=== PATIENT | female | born 1975 | race Caucasian/White ===

== ENCOUNTER 2017-12-03 13:15 | Emergency (ER) | payer BC, SELFPAY ==
[2017-12-03 15:36] VITALS: BP 171/101; PULSE 79; RESP 20; TEMP 37.1; O2SAT 96; BMI 41.5
--- NOTE | 2017-12-03 16:53 | HMH.EDUTC ---
[facility] [place] Clinical Impression: Viral upper respiratory illness, Heart murmur High blood pressure Qualifiers: Hypertension type: unspecified Qualified Code(s): I10 - Essential (primary) hypertension Disposition: Home, Self-Care Condition on Discharge: Good Instructions: DI for High Blood Pressure, DI for Viral Upper Respiratory Infection -- Adult, DI for Heart Murmur-Adult Additional Instructions: * No sign of bacterial infection. Likely viral. Virus can take 7-14 days to run their course * Monitor Temp. Follow up if fever returns. * Encourage fluids, water, gatorade, powerade, pedialyte if infant/toddler/child * warm salt water gargles * warm fluids * sore throat lozenges * sleep elevated * humidifier/vaporizer * STOP mucinex DM due to elevated blood pressure. Start plain mucinex during the day for your cough and cough suppressant only at night. Be sure to drink lots of water. Insurance may not cover a prescription of mucinex. Might be cheaper to get 400mg tablets and take 2 tablets morning, midday and evening all with lots of water. * Tessalon Perles will not cause drowsiness but use at bedtime to help stop cough so that you can get some rest Prescriptions: Benzonatate [Benzonatate 200mg Cap] 200 mg PO HS PRN #14 cap PRN Reason: Cough Referrals: Emmett Solorio MD [Primary Care Provider] - (Call first thing tomorrow and request a follow up due to elevated blood pressure and heart mumur on exam today. Return immediately for new or worsening symptoms. ) Time of Disposition: 17:12 Medical Decision Making Vital Signs: 12/03/17 15:36 Temperature 98.7 F Temperature Source Temporal Artery Scan Pulse Rate [Right Brachial] 79 Respiratory Rate 20 Blood Pressure [Right Arm] 171/101 Blood Pressure Mean [Right Arm] 124 Blood Pressure Source [Right Arm] Automatic Cuff Blood Pressure Position [Right Arm] Sitting 02 Sat by Pulse Oximetry 96 Oxygen Delivery Method Room Air - Camron Inquiry Pt receiving controlled substance: No [facility] [place] - General Stated complaint: head congestion cough wheezing Time Seen by Provider: 12/03/17 16:54 Mode of Arrival: Family Vehicle Source of Information: Patient Limitations: No Limitations Description of Symptoms (Recalled from Triage Doc. by RN): COUGH, CHEST CONGESTION, SINCE THURSDAY. PT HAS BEEN TAKING MUCINEX DM FOR THE SYMPTOMS. HEENT Symptoms (Recalled from RN notes): No Resp Symptoms (Recalled from RN notes): Yes (COUGH, CHEST CONGESTION) Skin Symptoms (Recalled from RN notes): No MS Symptoms (Recalled from RN notes): No Functional Status (Recalled from RN notes): NA - History of Present Illness Provider Complaint: c/o cough, congestion, wheezing since Thursday. Later describes wheezing and not wheezing, instead chest congestion. Fever 99-100 initially but that resolved. Cough somewhat better . Occasional small amount of clear sputum. Clear nasal drainage. Mucinex DM helps I guess a little . Hasn't taken or tried anything else. nonsmoker. No known sick contacts. - Related Data Home Medications Medication Instructions Recorded Confirmed Loratadine [Claritin 10mg Tablet] 10 mg PO DAILY 12/03/17 12/03/17 Previous Rx's Medication Instructions Recorded Benzonatate [Benzonatate 200mg Cap] 200 mg PO HS PRN #14 cap 12/03/17 Allergies Allergy/AdvReac Type Severity Reaction Status Date / Time No Known Allergies Allergy Verified 12/03/17 13:38 - Worker's Comp Is this a Worker's Comp case?: No [facility] History I have reviewed the patient's past medical history: Yes Other Medical History: Reports: Other (allergies) Other Surgeries: Yes: , Other (carpal tunnel) - *Social History Smoking Status: Never smoker Alcohol Intake: never - Psychiatric History Expresses thoughts of harming self/others: None Suicide Plan Description: No Plan ROS Obtained: Yes Systems reviewed as appropriate & no additional complaints - Constitutional Constitu
--- NOTE | 2017-12-03 17:08 | ED_ITS ---
[facility] – [place] Clinical Impression: Viral upper respiratory illness, Heart murmur High blood pressure Qualifiers: Hypertension type: unspecified Qualified Code(s): I10 - Essential (primary) hypertension Disposition: Home, Self-Care Condition on Discharge: Good Instructions: DI for High Blood Pressure, DI for Viral Upper Respiratory Infection -- Adult, DI for Heart Murmur-Adult Additional Instructions: * No sign of bacterial infection. Likely viral. Virus can take 7-14 days to run their course * Monitor Temp. Follow up if fever returns. * Encourage fluids, water, gatorade, powerade, pedialyte if infant/toddler/ child * warm salt water gargles * warm fluids * sore throat lozenges * sleep elevated * humidifier/vaporizer * STOP mucinex DM due to elevated blood pressure. Start plain mucinex during the day for your cough and cough suppressant only at night. Be sure to drink lots of water. Insurance may not cover a prescription of mucinex. Might be cheaper to get 400mg tablets and take 2 tablets morning, midday and evening all with lots of water. * Tessalon Perles will not cause drowsiness but use at bedtime to help stop cough so that you can get some rest Prescriptions: Benzonatate [Benzonatate 200mg Cap] 200 mg PO HS PRN #14 cap PRN Reason: Cough Referrals: Emmett Solorio MD [Primary Care Provider] - (Call first thing tomorrow and request a follow up due to elevated blood pressure and heart mumur on exam today. Return immediately for new or worsening symptoms. ) Time of Disposition: 17:12 Medical Decision Making Vital Signs: 12/03/17 15:36 Temperature 98.7 F Temperature Source Temporal Artery Scan Pulse Rate [Right Brachial] 79 Respiratory Rate 20 Blood Pressure [Right Arm] 171/101 Blood Pressure Mean [Right Arm] 124 Blood Pressure Source [Right Arm] Automatic Cuff Blood Pressure Position [Right Arm] Sitting 02 Sat by Pulse Oximetry 96 Oxygen Delivery Method Room Air - Camron Inquiry Pt receiving controlled substance: No [facility] – [place] HPI - General Stated complaint: head congestion cough wheezing Time Seen by Provider: 12/03/17 16:54 Mode of Arrival: Family Vehicle Source of Information: Patient Limitations: No Limitations Description of Symptoms (Recalled from Triage Doc. by RN): COUGH, CHEST CONGESTION, SINCE THURSDAY. PT HAS BEEN TAKING MUCINEX DM FOR THE SYMPTOMS. HEENT Symptoms (Recalled from RN notes): No Resp Symptoms (Recalled from RN notes): Yes (COUGH, CHEST CONGESTION) Skin Symptoms (Recalled from RN notes): No MS Symptoms (Recalled from RN notes): No Functional Status (Recalled from RN notes): NA - History of Present Illness Provider Complaint: c/o cough, congestion, wheezing since Thursday. Later describes wheezing and not wheezing, instead chest congestion. Fever 99-100 initially but that resolved. Cough somewhat better . Occasional small amount of clear sputum. Clear nasal drainage. Mucinex DM helps I guess a little . Hasn 't taken or tried anything else. nonsmoker. No known sick contacts. - Related Data Home Medications Medication Instructions Recorded Confirmed Loratadine [Claritin 10mg Tablet] 10 mg PO DAILY 12/03/17 12/03/17 Previous Rx's Medication Instructions Recorded Benzonatate [Benzonatate 200mg Cap] 200 mg PO HS PRN #14 cap 12/03/17 Allergies Allergy/AdvReac Type Severity Reaction Status Date / Time No Known Allerg
[2017-12-03 17:13] VITALS: BP 168/88
== END 2017-12-03 17:13 | disposition home or self-care (01) ==
PROVIDERS: Emergency Provider Nurse Practitioner Family; Family Provider Emergency Medicine; PCP Emergency Medicine
DX: J06.9 Acute upper respiratory infection, unspecified (principal); R01.1 Cardiac murmur, unspecified; Z79.899 Other long term (current) drug therapy
CPT/HCPCS: 99201

== ENCOUNTER → 2017-12-11 16:02 | Outpatient (REF) | payer BC, SELFPAY ==
[2017-12-11 18:21] LABS: Basophils # 0.1 K/mm3 (0-0.2); Basophils % 0.6 % (0.1-2.0); Eosinophils # 0.1 K/mm3 (0.0-0.4); Eosinophils % 1.3 % (0.1-12.0); Hematocrit 37.5 % (37.0-47.0); Hemoglobin 12.4 g/dL (12.2-16.2); Lymphocytes # 2.4 K/mm3 (0.7-4.5); Lymphocytes % 30.3 K/mm3 (10-50); Mean Corpuscular Volume 78.8 fl (81-99); Mean Platelet Volume 8.3 fl (7.4-10.4); Monocytes # 0.4 K/mm3 (0.1-1.0); Monocytes % 5.4 % (1.7-9.3); Neutrophils # 4.9 K/mm3 (1.8-7.8); Neutrophils % 62.3 % (37.0-80.0); Platelet Count 374 K/mm3 (142-424); Red Blood Count 4.76 M/mm3 (4.20-5.40); Red Cell Distribution Width 14.1 % (11.5-17.5); White Blood Count 7.9 K/mm3 (4.8-10.8)
[2017-12-11 19:31] LABS: Alanine Aminotransferase 25 U/L (12-78); Albumin Level 4.1 gm/dL (3.4-5.0); Albumin/Globulin Ratio 1.1 (1.1-1.8); Alkaline Phosphatase 120 U/L (46-116); Aspartate Amino Transferase 23 U/L (15-37); Bilirubin,Total 1.2 mg/dL (0.2-1.0); Blood Urea Nitrogen 5 mg/dL (7-18); Calcium 8.9 mg/dL (8.5-10.1); Carbon Dioxide 30 mmol/L (21.0-32.0); Chol/HDL Ratio 4.4 (1-3.5); Cholesterol 181 mg/dL (140-200); Creatinine,Serum 0.61 mg/dL (0.55-1.02); Estimated Glomerular Filt Rate 108 ml/min (>60); Free T4 (Free Thyroxine) 1.02 ng/dl (0.76-1.46); GFR (African American) 130 ML/MIN (>60); Globulin 3.8 gm/dl (1.3-3.2); Glucose 94 mg/dL (74-106); HDL Cholesterol 41 mg/dL (29-89); LDL Cholesterol 109 mg/dL (0-130); Thyroid Stimulating Hormone 1.27 uIU/ml (0.358-3.740); Total Protein,Serum 7.9 gm/dL (6.4-8.2); Triglycerides 153 mg/dL (30-200); VLDL Cholesterol 31 mg/dL (0-40)
[2017-12-11 21:08] LABS: Chloride 101 mmol/L (98-107); Sodium 139 mmol/L (136-145)
[2017-12-11 22:29] LABS: Hemoglobin A1C 5.4 % (0.0-7.0)
[2017-12-16 18:16] LABS: Vitamin D 25 Hydroxy 11.4 ng/mL (30.0-100.0)
== END ==
LOC: LAB 16:02
PROVIDERS: Visit Provider Nurse Practitioner Family
DX: R53.83 Other fatigue (principal)
CPT/HCPCS: 80053; 80061; 82652; 83036; 84439; 84443; 85025

== ENCOUNTER → 2018-02-11 10:24 | Outpatient (CLI) | payer BC, SELFPAY ==
--- NOTE | 2018-02-11 10:26 | MM_ITS ---
MM Dig screening mamm BI w/CAD CAD Screening COMPARISON: None, patient had previous mammograms 18 years ago and they're not available for review INDICATION: Is a history of breast cancer patient maternal aunt diagnosed after menopause TECHNIQUE: Standard CC and MLO images were obtained. R2 CAD reviewed. FINDINGS: Moderate diffuse fibroglandular densities are seen in both breast primarily upper outer quadrants. There are a few benign-appearing calcifications right breast. There is no suspicious lesion and there are no suspicious microcalcifications. There are small nodes in both axilla. IMPRESSION: Moderate diffuse breast density with no suspicious lesion seen BI-RADS Category: 2 Benign Finding(s) RECOMMENDED FOLLOW-UP: 1YR - 1 YEAR FOLLOW-UP (A letter has been sent to the patient regarding results of the study.)
== END ==
PROVIDERS: Family Provider Emergency Medicine; PCP Emergency Medicine; Visit Provider Nurse Practitioner Family
DX: Z12.31 Encounter for screening mammogram for malignant neoplasm of breast (principal)
CPT/HCPCS: 77067

== ENCOUNTER → 2018-07-08 11:00 | Outpatient (REF) | payer BC, SELFPAY ==
[2018-07-08 18:39] LABS: Alanine Aminotransferase 29 U/L (12-78); Albumin Level 4.2 gm/dL (3.4-5.0); Albumin/Globulin Ratio 1.1 (1.1-1.8); Alkaline Phosphatase 106 U/L (46-116); Anion Gap 12.3 mEq/L (5-15); Aspartate Amino Transferase 26 U/L (15-37); Bilirubin,Total 1.6 mg/dL (0.2-1.0); Blood Urea Nitrogen 10 mg/dL (7-18); Calcium 9.3 mg/dL (8.5-10.1); Carbon Dioxide 26 mmol/L (21.0-32.0); Chloride 105 mmol/L (98-107); Creatinine,Serum 0.76 mg/dL (0.55-1.02); Estimated Glomerular Filt Rate 83 ml/min (>60); GFR (African American) 101 ML/MIN (>60); Globulin 3.7 gm/dl (1.3-3.2); Glucose 103 mg/dL (74-106); Potassium 4.3 mmoL/L (3.5-5.1); Sodium 139 mmol/L (136-145); Total Protein,Serum 7.9 gm/dL (6.4-8.2)
[2018-07-10 20:26] LABS: Vitamin D 25 Hydroxy 31.5 ng/mL (30.0-100.0)
== END ==
LOC: LAB 11:00
PROVIDERS: Visit Provider Nurse Practitioner Family
DX: I10 Essential (primary) hypertension (principal); E55.9 Vitamin D deficiency, unspecified
CPT/HCPCS: 80053; 82652

== ENCOUNTER → 2018-07-15 14:21 | Outpatient (CLI) | payer BC, SELFPAY | PROVIDERS: PCP Emergency Medicine; Visit Provider Internal Medicine | DX: R01.1 Cardiac murmur, unspecified (principal) | CPT/HCPCS: 93306 ==

== ENCOUNTER → 2018-09-14 11:41 | Outpatient (CLI) | payer BC, SELFPAY ==
[2018-09-14 13:53] LABS: Anion Gap 12.2 mEq/L (5-15); Blood Urea Nitrogen 12 mg/dL (7-18); Calcium 8.9 mg/dL (8.5-10.1); Carbon Dioxide 28 mmol/L (21.0-32.0); Chloride 104 mmol/L (98-107); Creatinine,Serum 0.65 mg/dL (0.55-1.02); Estimated Glomerular Filt Rate 99 ml/min (>60); GFR (African American) 120 ML/MIN (>60); Glucose 98 mg/dL (74-106); Potassium 4.2 mmoL/L (3.5-5.1); Sodium 140 mmol/L (136-145)
== END ==
PROVIDERS: Visit Provider Urology
DX: I10 Essential (primary) hypertension (principal); R25.2 Cramp and spasm
CPT/HCPCS: 36415; 80048

== ENCOUNTER → 2019-06-06 15:02 | Outpatient (CLI) | payer BC, SELFPAY ==
[2019-06-06 16:12] LABS: Basophils % 0.5 % (0.1-2.0); Eosinophils # 0.1 K/mm3 (0.0-0.4); Eosinophils % 1.2 % (0.1-12.0); Hematocrit 39.2 % (37.0-47.0); Hemoglobin 12.9 g/dL (12.2-16.2); Lymphocytes # 2.2 K/mm3 (0.7-4.5); Lymphocytes % 26.6 % (10-50); Mean Corpuscular HGB Conc 32.9 g/dL (31.8-35.4); Mean Corpuscular Hemoglobin 28.2 pg (27.0-31.2); Mean Corpuscular Volume 85.9 fl (81-99); Mean Platelet Volume 8.7 fl (7.4-10.4); Monocytes # 0.4 K/mm3 (0.1-1.0); Neutrophils # 5.5 K/mm3 (1.8-7.8); Neutrophils % 66.6 % (37.0-80.0); Platelet Count 348 K/mm3 (142-424); Red Blood Count 4.57 M/mm3 (4.20-5.40); Red Cell Distribution Width 13.4 % (11.5-17.5); White Blood Count 8.3 K/mm3 (4.8-10.8)
[2019-06-06 16:56] LABS: Alanine Aminotransferase 31 U/L (12-78); Albumin Level 4.2 gm/dL (3.4-5.0); Alkaline Phosphatase 111 U/L (46-116); Anion Gap 15.2 mEq/L (5-15); Aspartate Amino Transferase 21 U/L (15-37); Bilirubin,Direct 0.2 mg/dL (0.0-0.2); Bilirubin,Indirect 1.3 mg/dL (0.0-0.9); Bilirubin,Total 1.5 mg/dL (0.2-1.0); Blood Urea Nitrogen 8 mg/dL (7-18); Calcium 10.2 mg/dL (8.5-10.1); Carbon Dioxide 25 mmol/L (21.0-32.0); Chloride 104 mmol/L (98-107); Creatinine,Serum 0.61 mg/dL (0.55-1.02); Estimated Glomerular Filt Rate 107 ml/min (>60); GFR (African American) 129 ML/MIN (>60); Glucose 97 mg/dL (74-106); Potassium 4.2 mmoL/L (3.5-5.1); Sodium 140 mmol/L (136-145); Total Protein,Serum 7.6 gm/dL (6.4-8.2)
[2019-06-09 11:15] LABS: Vitamin D 25 Hydroxy 22.6 ng/mL (30.0-100.0)
== END ==
PROVIDERS: Visit Provider Nurse Practitioner Family
DX: I10 Essential (primary) hypertension (principal); R01.1 Cardiac murmur, unspecified; R60.0 Localized edema; M79.606 Pain in leg, unspecified; E66.01 Morbid (severe) obesity due to excess calories
CPT/HCPCS: 36415; 80048; 80076; 82652; 85025

== ENCOUNTER → 2019-06-23 14:47 | Outpatient (CLI) | payer BC, SELFPAY ==
--- NOTE | 2019-06-23 14:49 | CA_ITS ---
APPROVED REPORT Bilateral Lower Extremity Venous Study for DVT. Tape Librarian: KAMILA Indications Lower Extremity Pain: Right leg pain Vein Imaging CFV (R): compressive, spontaneous, phasic, augmentation FEM (R): compressive, spontaneous, phasic, augmentation POP (R): compressive, spontaneous, phasic, augmentation PTV (R): Compressible GSV (R): Compressible Peroneals (R):Compressible GAS (R): Compressible Conclusion No evidence of DVT or superficial thrombophlebitis in the veins scanned of the right lower extremity. Electronically signed by : Lee Mishra MD 06/23/2019 19:19:06
== END ==
PROVIDERS: PCP Nurse Practitioner Family; Visit Provider Nurse Practitioner Family
DX: M79.604 Pain in right leg (principal)
CPT/HCPCS: 93971

== ENCOUNTER → 2019-06-30 10:49 | Outpatient (CLI) | payer BC, SELFPAY ==
--- NOTE | 2019-06-30 11:03 | XR_ITS ---
PROCEDURE: XR KNEE RT 3V CLINICAL INDICATION: pain COMPARISON: No exams were available for comparison FINDINGS: No fracture or dislocation. No lytic or blastic change. There is normal mineralization. There are mild osteoarthritic changes of the medial compartment and patellofemoral joint Other findings:None. IMPRESSION: Mild osteoarthritis otherwise negative Dictated by: Lee Mishra MD 06/30/2019 11:42 Signed by: <Electronically signed by Lee Mishra MD in [place]> 06/30/2019 11:42
--- NOTE | 2019-06-30 11:03 | XR_ITS ---
PROCEDURE: XR TIBIA FIBULA RT 2V CLINICAL INDICATION: pain COMPARISON: No exams were available for comparison FINDINGS: No fracture, dislocation, lytic change, or blastic change evident. No significant degenerative change IMPRESSION: No acute findings. Dictated by: Lee Mishra MD 06/30/2019 12:57 Signed by: <Electronically signed by Lee Mishra MD in [place]> 06/30/2019 12:57
== END ==
PROVIDERS: PCP Emergency Medicine; Visit Provider Nurse Practitioner Family
DX: M79.604 Pain in right leg (principal); R52 Pain, unspecified; M25.561 Pain in right knee
CPT/HCPCS: 73562; 73590

== ENCOUNTER → 2019-07-22 10:59 | Outpatient (CLI) | payer BC, SELFPAY ==
--- NOTE | 2019-07-22 11:00 | MM_ITS ---
PROCEDURE: MM DIG SCREENING MAMM BI W/CAD Patient Age:44Y CLINICAL INDICATION: screening 44-year-old female. No hormones no new complaints. A to family history paternal aunt with breast cancer COMPARISON: [facility] MM Dig screening mamm BI w/CAD from 02/11/2018 TECHNIQUE: Standard CC and MLO images were obtained. R2 CAD reviewed. Additional CC nipple profile views bilaterally FINDINGS: Moderately dense breast bilaterally this pattern slightly decreases sensitivity of mammography. Breast tissue most evident towards upper-outer quadrant both breasts but no discrete new areas of significant concern. No dominant mass. No suspicious new mass. No suspicious calcifications but regression of previous calcifications right breast. Mild heterogeneous pattern bilateral bilateral Right breast: Minimal nodularity highlighted by CAD emboli was present before here at the central breast but however I would suggest a follow-up right mammogram in 6 months to confirm stability. Left breast: No new areas of significant concern Stable intramammary node towards the axillary tail of left breast noted by CAD is unchanged. Other areas of subtle nodular character at superior left breast appear stable as well. Follow-up 1 year left breast recommended IMPRESSION: regions of moderately dense breast tissue bilaterally decrease sensitivity of mammography Right mammogram:. Minimal nodularity central right breast on CC view I believe is most likely stable; but would benefit from a six-month follow-up to further confirm stability . Left mammogram. No new findings of significant concern Bilateral follow-up 1 year recommended. BI-RAD Category: 3 Probably Benign Finding Short Term Follow-up FOLLOW-UP: 6M 6 Month Follow-up 6-8 follow-up study right breast suggested (A letter has been sent to the patient regarding results of the study.) Dictated by: Curtis Jackson MD 07/26/2019 23:37 Electronically signed by Curtis Jackson MD in [place] 08/02/2019 11:27
== END ==
PROVIDERS: PCP Nurse Practitioner Family; Visit Provider Nurse Practitioner Family
DX: Z12.31 Encounter for screening mammogram for malignant neoplasm of breast (principal)
CPT/HCPCS: 77067

== ENCOUNTER → 2019-08-09 14:16 | Outpatient (CLI) | payer BC, SELFPAY ==
--- NOTE | 2019-08-09 14:17 | MR_ITS ---
PROCEDURE: MR KNEE RT WO CON CLINICAL INDICATION: Right knee pain COMPARISON: XR KNEE RT 3V from 06/30/2019 TECHNIQUE: Routine multi-echo and multiplanar technique. FINDINGS: Alignment and joint spaces appear normal. There is focal erosion of the articular cortex from the lateral facet of the patella with subchondral patellar increased marrow signal. The remainder of the cartilage areas appear to be intact. There is a rounded area of fluid signal measuring 6 millimeters involving posterior proximal tibia near the insertion of the PCL. There is some adjacent mild marrow edema in this area likely degenerative. Medial meniscus is intact although there is some central intermediate signal involving the posterior body which does not involve the articular surfaces. The remainder of the medial meniscus is normal. Lateral meniscus is normal. PCL and ACL are normal. There is generalized thickening of intermediate signal involving the superior midportion of the MCL. There is no associated fluid collection and the orientation of the MCL is otherwise intact. The lateral capsular complex appears intact. There is a curvilinear focus of fluid signal which extends from the margin of the capsule along the lateral posterior aspect and migrates caudally to the level of the fibular head. This is a cystic focus with maximal diameter of 10 millimeters at the fibular head. Small amount of joint fluid. There are some strands of T2 signal indicating subcutaneous edema just anterior to the patellar tendon which is intact. Quadriceps tendon appears intact. There is no popliteal cyst. IMPRESSION: Degenerative change involving posterior body of the medial meniscus without tear. 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 Intermediate signal thickening of the anterior superior and midportion of the MCL which could be from chronic injury or strain. There is no definite full-thickness acute tear of the MCL. Degenerative cyst and reactive mild edema posterior proximal tibia. Curvilinear for fluid collection laterally likely a small synovial cyst extending to the fibular head. Mild soft tissue edema anterior to the patellar tendon. Dictated by: En John 08/09/2019 15:32 Electronically signed by En John in [place] 08/09/2019 15:32
== END ==
PROVIDERS: PCP Emergency Medicine; Visit Provider Orthopaedic Surgery
DX: M25.561 Pain in right knee (principal)
CPT/HCPCS: 73721

== ENCOUNTER 2019-09-06 14:30 | Outpatient (RCR) | payer BC, SELFPAY ==
--- NOTE | 2019-07-12 16:01 | HMH.PTOPEV ---
PT Outpatient Evaluation Rehab PT Outpatient Evaluation Start: 07/12/19 15:11 Freq: Status: Active Protocol: Document 07/12/19 15:51 SALEEM (Rec: 07/12/19 16:01 PHORNE [id number]) Electronically Signed By Kehinde Jackman, PT 07/12/19 15:51 Outpatient Therapy Subjective History Subjective History Pt is 44 yowf who presents with c/o pain in the right knee and lower leg x ~ 3 wks with insidipous onset of symptoms. She reports she received general steroid injection which helped her symptoms, but they haven't completely went away. She reports pain is worse with walking and usually just putting weight on it. She reports no c/o numbness or tingling, but is tender to palpation in the medial right knee, popliteal space, and medial lower right leg. She reports PMH of HTN, and heart murmur. Chief Complaint Pain,Stiff Symptom Type Sharp Symptoms Relieved By Rest/Positioning,Heat Symptoms Aggravated By Walking Prior Functional Limitations None Current Functional Limitations Standing,Walking Symptom Description Activity Dependent Level of pain today (0-10) 0 Pain scale - at its worst (0-10) 6 Hip/Knee Eval Gait Observation General Gait Pattern Observation Antalgic Gait,Wide Based Gait Palpation Tenderness right Knee Palpation Finding Tenderness Knee Palpation Overall Comment popliteal space, medial jt line. MMT Hip Flexion Strength Grade 4 Good Hip Abduction Strength Grade 4 Good Hip Adduction Strength Grade 4 Good Knee Extension Strength Grade 4 Good Knee Flexion Strength Grade 4 Good ROM Knee Extension Active Range of Motion ( 0 degrees) Knee Flexion Active Range of Motion ( 0-120 degrees) Knee Flexion Passive Range of Motion ( 0-125 degrees) Special Tests Hip Scouring (Quadrant) Test Negative Left,Negative Right Knee Apley Compression Test Negative Left,Positive Right Knee Anterior Drawer Test Negative Left,Negative Right Knee Posterior Sag ([place] Drawer) Test Negative Left,Negative Right Knee Valgus Stress Test Negative Left,Negative Right Knee Varus Stress Test Negative Left,Negative Right Outpatient Therapy Assessment Impairments
== END 2019-09-06 14:35 | disposition home or self-care (01) ==
LOC: PT 14:30
PROVIDERS: PCP Emergency Medicine; Visit Provider Nurse Practitioner Family
DX: M79.604 Pain in right leg (principal)
CPT/HCPCS: 97010; 97014; 97016; 97033; 97035; 97110; 97163; 97164; G0283

== ENCOUNTER → 2021-11-26 22:54 | Outpatient (CLI) | payer BC, SELFPAY | PROVIDERS: Visit Provider Nurse Practitioner Family | DX: U07.1 COVID-19 (principal) | CPT/HCPCS: C9803; U0003; U0005 ==

== ENCOUNTER → 2022-04-22 07:57 | Outpatient (CLI) | payer BC, SELFPAY ==
--- NOTE | 2022-04-22 07:58 | CA_ITS ---
APPROVED REPORT Exam: Exercise Treadmill Technologist: Jesi Barr, Ht: 5 ft 1 in Wt: 232 lbs BSA: 2.01 m2 HR: 82 bpm BP: 135/74 mmHg Rhythm: NSR,LOW VOLTAGE QRS Medical History Medical History: HTN Medications: Lisinopril,,,,, Hydrochlorothiazide,,,,, LoraTADINE,,,,, Vit B12,,,,, Cardiac Risk Factors: HTN, FHX of CAD Stress Test Details Test: Marilyn HR Resting HR: 94 bpm Max Heart Rate (APMHR): 173.617046 bpm Max HR Achieved: 155 bpm Target HR (85% APMHR): 147.040524 bpm % of APMHR: 89.60 Recovery HR: 82 bpm BP Resting BP: 134.0/74.0 mmHg Max BP: 230.0/86.0 mmHg Recovery BP: 202.0/90.0 mmHg ECG Resting ECG: NSR,LOW VOLTAGE QRS Clinical Exercise duration: 05:01 min Highest Stage Achieved: Exercise capacity: 7.0 METs Stress ECG Conclusion PATIENT EXERCISED 5:01 INTO STAGE II OF MARILYN PROTOCOL. MAX HEART RATE 155 BPM WHICH IS 90% OF PM FOR AGE. MAX BP 230/86. METS 7.0. TEST STOPPED DUE TO SOA AND FATIGUE. NO CP. NO ARRHYTHMIA/ECTOPY. 1MM OF HORIZONTAL DOWNSLOPING AND UPSLOPING ST DEPRESSION INFERIORLY. 1MM OF UPSLOPING ST DEPRESSION LATERALLY. EQUIVOCAL EKG CHANGES FOR ISCHEMIA. HTN RESPONSE TO EXERCISE. GXT ONLY (NO IMAGING) Test Summary REST . . . . . . . Standing REST . . . . . . . Sitting REST 04:30 0.0 0.0 94 . 134/ 74 . . Stage 1 01:00 10.0 1.7 115 . . . . Stage 1 02:00 10.0 1.7 130 . . . . Stage 1 03:00 10.0 1.7 139 . 215/ 90 . . Stage 2 01:00 12.0 2.5 146 . . . . Stage 2 02:00 12.0 2.5 155 . 230/ 86 . . Stage 2 02:01 12.0 2.5 155 . 230/ 86 . Stop exercise at 05:01 RECOVERY 01:00 0.0 0.0 0 . . . . RECOVERY 02:00 0.0 0.0 113 . . . . RECOVERY 03:00 0.0 0.0 107 . 202/ 90 . . RECOVERY 04:00 0.0 0.0 101 . 193/ 81 . . RECOVERY 05:00 0.0 0.0 101 . 193/ 81 . . RECOVERY 06:00 0.0 0.0 96 . 169/ 75 . . RECOVERY 06:42 0.0 0.0 101 . 159/ 88 . . Electronically signed by : Finn Benton MD 04/22/2022 19:50:26
--- NOTE | 2022-04-22 07:58 | CA_ITS ---
APPROVED REPORT EXAM: Comprehensive 2D, Doppler, and color-flow Echocardiogram Matrix Repairer: Kathia Cha RVT Ht: 5 ft 1 in Wt: 232lbs BSA: 2.01 BP: 151/76 mmHg Indications: ABN EKG,HTN,PALPS,OBESITY,MURMUR 2D Dimensions LVOT 1.99 cm (M/F) 1.5-2.5 LA Volume 26.50 mL LA Volume Index 13.18 mL/m2 (M/F) 16-34 M-Mode Dimensions RVDd 2.35 cm (0.9-2.6) LA Diam 3.91 cm (1.9-4.0) LVDd 3.79 cm (3.5-5.7) Ao Diam 2.38 cm (2.0-3.7) LVDs 2.65 cm (3.5-5.7) IVSd 1.18 cm (0.6-1.1) PWd 1.14 cm (0.6-1.1) EF (Teich) 58.10% FS 30.10% EDV (Teich) 61.60 mL TAPSE 2.64 (<1.7) ESV (Teich) 25.80 mL LV Diastology E Decel Time 210.00 (160-240 msec) E/A Ratio 0.9 MED E' 5.50 (< 7 cm/sec) E'/MED E' Ratio 14.91 (>14) LAT E' 9.00 (<10 cm/sec) E/LAT E' Ratio 9.11 (>14) Aortic Valve AO Peak GR. 9.20 mmHg Mitral Valve MV E Max Adam. 82.00 (40-130 cm/s) MV A Velocity 88.00 (40-130 cm/s) E/A Ratio 0.94 MV Decel. Time 210.00 (160-240 ms) MV PHT 62.00 ms Pulmonary Valve PV Peak Velocity 85.00 (50-150 cm/s) Left Ventricle Left atrium is mildly enlarged, left ventricle is normal size, left ventricular wall thickness is upper limit of normal, there is preserved left ventricular systolic function, estimated ejection fraction 55% with no regional wall motion abnormality, Doppler evidence of impaired LV relaxation seen, tissue Doppler is not indicated will raise left atrial pressure. Right Ventricle Right atrium and right ventricle are normal size and contractility. Aortic Valve Aortic valve is grossly normal, there is no aortic stenosis or aortic insufficiency. Mitral Valve Mitral valve grossly normal, there is trace mitral regurgitation. Tricuspid Valve Tricuspid grossly normal, there is trace tricuspid regurgitation, tricuspid rotation jet velocity is inadequate for calculation of the right ventricular systolic pressure. Pulmonic Valve Pulmonic valve is poorly visualized. Great Vessels Aortic root is normal size. Inferior vena cava is poorly visualized. Pericardium No significant pericardial effusion noted. Conclusion 1. Normal left ventricular size preserved left ventricular systolic function, estimated ejection fraction 45% with no regional wall motion abnormality, Doppler evidence of impaired relaxation seen, tissue Doppler is not indicated of left left atrial pressure. 2. Trace mitral and tricuspid regurgitation. 3. No significant pericardial effusion. 4. Inferior vena cava is poorly visualized. Electronically signed by : Finn Benton MD 04/22/2022 19:38:06
== END ==
LOC: RT 07:58
PROVIDERS: PCP Emergency Medicine; Visit Provider Physician Assistant
DX: R94.31 Abnormal electrocardiogram [ECG] [EKG] (principal); I10 Essential (primary) hypertension; E66.01 Morbid (severe) obesity due to excess calories; Z68.41 Body mass index [BMI] 40.0-44.9, adult
CPT/HCPCS: 93017; 93306

== ENCOUNTER 2022-04-30 14:01 | Emergency (ER) | payer BC, SELFPAY ==
[2022-04-30 14:20] VITALS: BP 128/59; PULSE 93; RESP 18; TEMP 36.8; O2SAT 97; BMI 25.4
--- NOTE | 2022-04-30 14:25 | HMH.EDUTC ---
[facility] Disposition Clinical Impression: Viral syndrome, Exposure to COVID-19 virus Disposition: Home, Self-Care Condition on Discharge: Good Instructions: DI for COVID-19 (Suspected or Confirmed ), Preventing the Spread of Coronavirus Discharge Instructions Additional Instructions: Drink plenty of fluids. Take tylenol or ibuprofen for pain or fever. Take the medications as directed. Follow up with your regular doctor. GO TO THE ER FOR ANY WORSENING SYMPTOMS Quarantine until you know the results of your covid-19 test. Notify your school or workplace of your results and follow their instructions regarding return to work/school. Prescriptions: Ondansetron [Zofran 4mg ODT] 4 mg PO Q8HP PRN #20 tab PRN Reason: Nausea Transmission Status: Received by [facility] #[id number] Benzonatate [Benzonatate 100mg cap] 100 mg PO TIDP PRN #30 cap PRN Reason: Cough Transmission Status: Received by [facility] #[id number] methylPREDNISolone [Medrol] 4 mg PO DIRECTED 6 Days #21 packet Transmission Status: Received by [facility] #[id number] Referrals: Emmett Solorio MD [Primary Care Provider] - Time of Disposition: 14:46 Medical Decision Making - Medical Records Medical records reviewed: No: I reviewed the patient's medical records. - Camron Inquiry Pt receiving controlled substance: No Vital Signs: 04/30/22 14:20 04/30/22 14:48 Temperature 98.3 F 98.3 F Temperature Source Oral Pulse Rate 93 H Pulse Rate [Left Radial] 93 H Respiratory Rate 18 18 Blood Pressure 128/59 L Blood Pressure [Right Arm] 128/59 L Blood Pressure Mean [Right Arm] 82 02 Sat by Pulse Oximetry 97 - Lab Data Lab results reviewed: Yes: I reviewed the patient's lab results. Orders (Tests/Meds): ORDERS Category Date Time Status Covid-19 Nasal PCR ([facility]) Routine Lab 04/30/22 14:17 Received [facility] HPI - General Stated complaint: covid test Time Seen by Provider: 04/30/22 14:25 Description of Symptoms (Recalled from Triage Doc. by RN): patient comes in for covid test. patient was exposed to covid by an employee. and patient woke up this morning with a sore throat, she took an at home covid test and it was positive HEENT Symptoms (Recalled from RN notes): Yes Resp Symptoms (Recalled from RN notes): No Skin Symptoms (Recalled from RN notes): No MS Symptoms (Recalled from RN notes): No Functional Status (Recalled from RN notes): wnl - History of Present Illness Provider Complaint: She states that for the past 2 days she has had chilling, sore throat and she has felt bad. - Related Data Home Medications Medication Instructions Recorded Confirmed Loratadine [Claritin 10mg 10 mg PO DAILY 12/03/17 04/14/22 Tablet] cyanocobalamin (vitamin B-12) 1,000 mcg PO DAILY 04/14/22 04/14/22 1,000 mcg capsule Previous Rx's Medication Instructions Recorded lisinopril 20 mg tablet 20 mg PO DAILY #90 tab 04/15/21 hydrochlorothiazide 12.5 mg tablet 12.5 mg PO DAILY #90 tab 04/15/22 Benzonatate [Benzonatate 100mg 100 mg PO TIDP PRN #30 cap 04/30/22 cap] Ondansetron [Zofran 4mg ODT] 4 mg PO Q8HP PRN #20 tab 04/30/22 methylPREDNISolone [Medrol] 4 mg PO DIRECTED 6 Days #21 04/30/22 packet Allergies Allergy/AdvReac Type Severity Reaction Status Date / Time No Known Allergies Allergy Verified 04/30/22 14:23 - Worker's Comp Is this a Worker's Comp case?: No [facility] History - Hepatitis A Screen Attestation statement:: This patient has been screened for Hepatitis A risk factors. I have reviewed the patient's past medical history: Yes Medical History: Reports:: Heart Murmur, Hypertension, Palpitations Other Medical History: Reports: Other Comment: CARPAL TUNNEL, B12 DEFFICIENCY, vitamin d Other Surgeries: Yes: , Dilation and Curettage, Other Amputation: No Fractures: No Comment: CARPAL TUNNEL ON BOTH WRIST - Social History Smoking Status: Never s
[2022-04-30 14:48] VITALS: BP 128/59; PULSE 93; RESP 18; TEMP 36.8
== END 2022-04-30 14:51 | disposition home or self-care (01) ==
PROVIDERS: Emergency Provider Nurse Practitioner Family; PCP Emergency Medicine
DX: U07.1 COVID-19 (principal); J02.9 Acute pharyngitis, unspecified
CPT/HCPCS: 99212; C9803; G0463; U0003; U0005

== ENCOUNTER → 2022-05-17 07:46 | Outpatient (CLI) | payer BC, SELFPAY | PROVIDERS: PCP Emergency Medicine; Visit Provider Internal Medicine | DX: U07.1 COVID-19 (principal) | CPT/HCPCS: C9803; U0003; U0005 ==

== ENCOUNTER 2022-05-19 09:30 | Day surgery (SDC) | payer BC, SELFPAY ==
[2022-05-19] VITALS (13 sets, daily range): BP systolic 102–150; BP diastolic 55–83; PULSE 69–74; RESP 18–20; O2SAT 95–97; BMI 44.1
[2022-05-19 10:01] LABS: Basophils # 0.1 K/mm3 (0-0.2); Eosinophils # 0.2 K/mm3 (0.0-0.4); Eosinophils % 1.9 % (0.1-12.0); Hematocrit 39.6 % (37.0-47.0); Hemoglobin 12.9 g/dL (12.2-16.2); Lymphocytes # 1.9 K/mm3 (0.7-4.5); Lymphocytes % 24.9 % (10-50); Mean Corpuscular HGB Conc 32.6 g/dL (31.8-35.4); Mean Corpuscular Hemoglobin 28.9 pg (27.0-31.2); Mean Corpuscular Volume 88.7 fl (81-99); Mean Platelet Volume 8.7 fl (7.4-10.4); Monocytes # 0.3 K/mm3 (0.1-1.0); Monocytes % 4.4 % (1.7-9.3); Neutrophils # 5.3 K/mm3 (1.8-7.8); Neutrophils % 67.8 % (37.0-80.0); Platelet Count 330 K/mm3 (142-424); Red Blood Count 4.46 M/mm3 (4.20-5.40); Red Cell Distribution Width 13.8 % (11.5-17.5); White Blood Count 7.8 K/mm3 (4.8-10.8)
[2022-05-19 10:11] LABS: Anion Gap 12.7 mEq/L (5-15); Blood Urea Nitrogen 9 mg/dl (7-17); Calcium 8.5 mg/dl (8.4-10.2); Carbon Dioxide 23 mmol/L (22.0-30.0); Chloride 108 mmol/L (98-107); Creatinine Clearance Estimated 105 mL/min (50-200); Estimated Glomerular Filt Rate 132 ml/min (>60); GFR (African American) 160 ML/MIN (>60); Glucose 121 mg/dl (74-100); Potassium 3.7 mmoL/L (3.5-5.1); Sodium 140 mmol/L (136-145)
== END 2022-05-19 14:40 | disposition home or self-care (01) ==
LOC: CATHLAB 09:31
PROVIDERS: PCP Emergency Medicine; Visit Provider Internal Medicine
DX: R07.9 Chest pain, unspecified (principal); I20.8 Other forms of angina pectoris; I10 Essential (primary) hypertension; Z79.899 Other long term (current) drug therapy; R94.31 Abnormal electrocardiogram [ECG] [EKG]; R94.39 Abnormal result of other cardiovascular function study
CPT/HCPCS: 80048; 85025; 93458; 99152; C1725; C1769; J1644; Q9967

== ENCOUNTER → 2022-06-26 14:59 | Outpatient (CLI) | payer BC, SELFPAY | PROVIDERS: PCP Emergency Medicine; Visit Provider Internal Medicine | DX: G47.33 Obstructive sleep apnea (adult) (pediatric) (principal); R06.00 Dyspnea, unspecified; R40.0 Somnolence; E66.01 Morbid (severe) obesity due to excess calories; Z68.41 Body mass index [BMI] 40.0-44.9, adult | CPT/HCPCS: G0399 ==

== ENCOUNTER 2023-01-11 12:15 | Emergency (ER) | payer BC, SELFPAY ==
[2023-01-11 13:00] VITALS: BP 127/79; PULSE 75; RESP 20; TEMP 36.4; O2SAT 96; BMI 42.1
--- NOTE | 2023-01-11 13:37 | EXP.UTC ---
Discharge Plan Disposition Patient Disposition: Home, Self-Care Condition: Good Prescriptions Prescriptions: New amoxicillin-pot clavulanate 875-125 mg Tablet 1 tab PO Q12H Qty: 14 0RF fluticasone propionate [Flonase Allergy Relief] 50 mcg/actuation spray,suspension 1 spray intranasal DAILY Qty: 16 0RF Rx Instructions: administer into each nostril polymyxin B sulf-trimethoprim [Polytrim] 10,000 unit- 1 mg/mL drops 2 drp ophthalmic (eye) Q6H 7 Days Qty: 10 0RF Rx Instructions: left eye while awake; do not exceed 6 doses in 24 hours No Action cyanocobalamin (vitamin B-12) 1,000 mcg capsule 1,000 mcg PO DAILY aspirin 81 mg tablet,chewable 81 mg PO DAILY lisinopril 20 mg tablet 20 mg PO DAILY Qty: 90 3RF metoprolol succinate [Toprol XL] 25 mg tablet extended release 24 hr 25 mg PO DAILY Qty: 90 3RF hydrochlorothiazide 12.5 mg tablet 12.5 mg PO DAILY Qty: 90 3RF loratadine 10 MG tablet 10 mg PO DAILY Referrals Follow up/Referrals: Emmett Solorio MD [Primary Care Provider] - See instructions Activity Restrictions/Add. Instructions Additional Instructions/Restrictions: wash hands before and after applying drops to eye Clear matting from eyes with warm water and baby shampoo Follow up with your Eye doctor if no improvement or any woresning of syptoms Take oral medication as prescribed return if needed Clinical Impressions Clinical Impression: Acute bacterial sinusitis, Conjunctivitis Instructions Patient Instructions: DI for Sinusitis, Sinusitis, DI for Conjunctivitis Discharge ED Provider: Rekha Shipley [facility] General Stated complaint: drainage, possible pink eye Mode of Arrival: Ambulatory Source of Information: Patient Limitations: No Limitations Time Seen by Provider: 01/11/23 13:37 Description of Symptoms (Recalled from Triage Doc. by RN): PATIENT C/O SINUS DRAINAGE, SORE THROAT, AND POSSIBLE PINK EYE X 2-3 DAYS HEENT Symptoms (Recalled from RN notes): Yes Resp Symptoms (Recalled from RN notes): No Skin Symptoms (Recalled from RN notes): No MS Symptoms (Recalled from RN notes): No Functional Status (Recalled from RN notes): WNL History of Present Illness Provider Complaint: Patient states that she has been having sinus pain and pressure, drianage and then this morning she woke up with left eye red and matted shut States that today she has been having thick yellowish drainage from her eye so she came in to get checked Related Data Home Medications Medication Instructions Recorded Confirmed loratadine 10 mg tablet 10 mg PO DAILY ALLERGIES 12/03/17 12/29/22 cyanocobalamin (vitamin B-12) 1,000 mcg PO DAILY 04/14/22 12/29/22 1,000 mcg capsule aspirin 81 mg chewable tablet 81 mg PO DAILY 07/15/22 12/29/22 Previous Rx's Medication Instructions Recorded hydrochlorothiazide 12.5 mg tablet 12.5 mg PO DAILY #90 tabs 04/15/22 lisinopril 20 mg tablet 20 mg PO DAILY #90 tabs 05/05/22 metoprolol succinate 25 mg 25 mg PO DAILY #90 tabs 05/13/22 tablet,extended release 24 hr (Toprol XL) amoxicillin 875 mg-potassium 1 tab PO Q12H #14 tabs 01/11/23 clavulanate 125 mg tablet fluticasone propionate 50 1 spray intranasal DAILY #16 grams 01/11/23 mcg/actuation nasal spray,suspension (Flonase Allergy Relief) polymyxin B sulfate 10,000 2 drp ophthalmic (eye) Q6H 7 days 01/11/23 unit-trimethoprim 1 mg/mL eye #10 mL drops (Polytrim) Allergies Allergy/AdvReac Type Severity Reaction Status Date / Time No Known Allergies Allergy Verified 12/29/22 14:13 Worker's Comp Is this a Worker's Comp case?: No [facility] Disclaimer: The information contained in this section may have been updated after the patient was seen, as this information can be updated by other users. Medical History Abnormal electrocardiography Coronary-myocardial bridge Daytime somnolence Edema Leg norris
[2023-01-11 13:51] VITALS: BP 127/79; PULSE 75; RESP 20; TEMP 36.4; O2SAT 96
== END 2023-01-11 13:55 | disposition home or self-care (01) ==
PROVIDERS: Emergency Provider Nurse Practitioner; PCP Emergency Medicine
DX: H10.9 Unspecified conjunctivitis (principal); J01.90 Acute sinusitis, unspecified
CPT/HCPCS: 99212; 99213; G0463

== ENCOUNTER 2023-11-11 12:09 | Outpatient (CLI) | payer BC, SELFPAY ==
[2023-11-11 12:55] LABS: Basophils # 0.1 K/mm3 (0-0.2); Basophils % 0.7 % (0.1-2.0); Eosinophils # 0.1 K/mm3 (0.0-0.4); Eosinophils % 1.3 % (0.1-12.0); Hematocrit 41.6 % (37.0-47.0); Hemoglobin 14.3 g/dL (12.2-16.2); Lymphocytes # 2.4 K/mm3 (0.7-4.5); Lymphocytes % 28.4 % (10-50); Mean Corpuscular HGB Conc 34.3 g/dL (31.8-35.4); Mean Corpuscular Hemoglobin 29.8 pg (27.0-31.2); Mean Corpuscular Volume 86.6 fl (81-99); Mean Platelet Volume 8.7 fl (7.4-10.4); Monocytes # 0.4 K/mm3 (0.1-1.0); Monocytes % 4.3 % (1.7-9.3); Neutrophils # 5.5 K/mm3 (1.8-7.8); Neutrophils % 65.3 % (37.0-80.0); Platelet Count 324 K/mm3 (142-424); Red Cell Distribution Width 13.5 % (11.5-17.5); White Blood Count 8.4 K/mm3 (4.8-10.8)
[2023-11-11 13:16] LABS: Alanine Aminotransferase 44 U/L (12-78); Albumin Level 4.6 g/dl (3.5-5.0); Alkaline Phosphatase 114 U/L (38-126); Aspartate Amino Transferase 50 U/L (14-36); Bilirubin,Direct 0.1 mg/dl (0.0-0.4); Bilirubin,Indirect 1.3 mg/dL (0.0-0.9); Bilirubin,Total 1.4 mg/dl (0.2-1.3); Bilirubin,Unconjugated 1.4 mg/dL (0.0-1.1); Blood Urea Nitrogen 9 mg/dl (7-17); Calcium 9.2 mg/dl (8.4-10.2); Carbon Dioxide 25 mmol/L (22.0-30.0); Chloride 105 mmol/L (98-107); Chol/HDL Ratio 5.6 (1-3.5); Cholesterol 207 mg/dl (140-200); Estimated Glomerular Filt Rate 132 ml/min (>60); GFR (African American) 159 ML/MIN (>60); Glucose 128 mg/dl (74-100); HDL Cholesterol 37 mg/dl (40-60); Magnesium 1.8 mg/dl (1.6-2.3); Sodium 137 mmol/L (136-145); Total Protein,Serum 7.8 g/dl (6.3-8.2); Triglycerides 179 mg/dl (30-150); VLDL Cholesterol 36 mg/dL (0-40)
[2023-11-11 13:27] LABS: Direct LDL Cholesterol 134.19 mg/dL (100-129)
[2023-11-11 13:38] LABS: Free T4 (Free Thyroxine) 1.36 ng/dl (0.78-2.19)
[2023-11-11 13:46] LABS: Thyroid Stimulating Hormone 2.01 uIU/mL (0.465-4.68)
== END 2023-11-11 23:59 ==
PROVIDERS: Visit Provider Physician Assistant
DX: I10 Essential (primary) hypertension (principal); Q24.5 Malformation of coronary vessels; R60.0 Localized edema; G47.33 Obstructive sleep apnea (adult) (pediatric); E66.9 Obesity, unspecified; Z68.41 Body mass index [BMI] 40.0-44.9, adult
CPT/HCPCS: 36415; 80048; 80061; 80076; 83735; 84439; 84443; 85025

== ENCOUNTER 2025-01-05 11:17 | Outpatient (CLI) | payer BC, SELFPAY ==
[2025-01-05 11:57] LABS: Basophils # 0.1 K/mm3 (0-0.2); Basophils % 0.8 % (0.1-2.0); Eosinophils # 0.1 K/mm3 (0.0-0.4); Eosinophils % 1.6 % (0.1-12.0); Hematocrit 40.8 % (37.0-47.0); Hemoglobin 13.8 g/dL (12.2-16.2); Lymphocytes # 2.2 K/mm3 (0.7-4.5); Lymphocytes % 29.4 % (10-50); Mean Corpuscular HGB Conc 33.8 g/dL (31.8-35.4); Mean Corpuscular Hemoglobin 28.3 pg (27.0-31.2); Mean Corpuscular Volume 83.6 fl (81-99); Monocytes # 0.4 K/mm3 (0.1-1.0); Monocytes % 5.8 % (1.7-9.3); Neutrophils # 4.7 K/mm3 (1.8-7.8); Neutrophils % 61.9 % (37.0-80.0); Platelet Count 341 K/mm3 (142-424); Red Blood Count 4.88 M/mm3 (4.20-5.40); White Blood Count 7.6 K/mm3 (4.8-10.8)
[2025-01-05 13:09] LABS: Free T4 (Free Thyroxine) 1.28 ng/dl (0.78-2.19)
[2025-01-05 13:32] LABS: Alanine Aminotransferase 35 U/L (12-78); Albumin Level 4.8 g/dl (3.5-5.0); Alkaline Phosphatase 104 U/L (38-126); Anion Gap 9.2 mEq/L (5-15); Aspartate Amino Transferase 49 U/L (14-36); Bilirubin,Direct 0.5 mg/dl (0.0-0.4); Bilirubin,Indirect 1.5 mg/dL (0.0-0.9); Bilirubin,Unconjugated 1.4 mg/dL (0.0-1.1); Blood Urea Nitrogen 11 mg/dl (7-17); Calcium 9.8 mg/dl (8.4-10.2); Carbon Dioxide 29 mmol/L (22.0-30.0); Chloride 106 mmol/L (98-107); Chol/HDL Ratio 5.9 (1-3.5); Cholesterol 196 mg/dl (140-200); Estimated Glomerular Filt Rate 106 ml/min (>60); GFR (African American) 129 ML/MIN (>60); Glucose 131 mg/dl (74-100); HDL Cholesterol 33 mg/dl (40-60); Magnesium 1.9 mg/dl (1.6-2.3); Potassium 4.2 mmoL/L (3.5-5.1); Sodium 140 mmol/L (136-145); Total Protein,Serum 7.6 g/dl (6.3-8.2); Triglycerides 189 mg/dl (30-150); VLDL Cholesterol 38 mg/dL (0-40)
[2025-01-05 13:42] LABS: Direct LDL Cholesterol 128.85 mg/dL (100-129)
[2025-01-05 14:19] LABS: Thyroid Stimulating Hormone 2.52 uIU/mL (0.465-4.68)
== END 2025-01-05 23:59 | disposition home or self-care (01) ==
LOC: LAB 11:18
PROVIDERS: Visit Provider Nurse Practitioner
DX: E78.5 Hyperlipidemia, unspecified (principal); R40.0 Somnolence; E55.9 Vitamin D deficiency, unspecified; I10 Essential (primary) hypertension; R60.9 Edema, unspecified; Z68.41 Body mass index [BMI] 40.0-44.9, adult; E66.9 Obesity, unspecified
CPT/HCPCS: 36415; 80048; 80061; 80076; 83036; 83735; 84439; 84443; 85025